=== PATIENT | male | born 1965 | race African-American/Black ===

== ENCOUNTER 2017-07-15 12:22 | Inpatient (IN) ==
[2017-07-15] MEDS ORDERED: SODIUM CHLORIDE 0.9% 1,000 ML IV STA (13:17)
[2017-07-15] MEDS ORDERED: METOCLOPRAMIDE 10 MG/2 ML VIAL IV STA (13:17)
[2017-07-15] MEDS ORDERED: ONDANSETRON 4 MG/2 ML VIAL IV STA (13:17)
[2017-07-15] MEDS ORDERED: PANTOPRAZOLE 40 MG VIAL IV STA (13:17)
[2017-07-15] MEDS ORDERED: ASPIRIN 325 MG TABLET PO STA (13:17)
[2017-07-15] MEDS ORDERED: DICYCLOMINE 20 MG/2 ML AMP IM ONE ×2 (13:22→13:51)
[2017-07-15] MEDS ORDERED: METOCLOPRAMIDE 10 MG/2 ML VIAL ONE (13:51)
[2017-07-15] MEDS ORDERED: ONDANSETRON 4 MG/2 ML VIAL ONE (13:51)
[2017-07-15] MEDS ORDERED: PANTOPRAZOLE 40 MG VIAL IV ONE (13:51)
[2017-07-15] MEDS ORDERED: ASPIRIN 325 MG TABLET ONE (13:51)
[2017-07-15 14:07] LABS: Basophils # 0.1 10*3/uL (0.0-0.2); Basophils % 0.4 % (0.0-0.8); Eosinophils % 0.1 % (0.00-10.9); Hematocrit 38.1 VOL% (42.0-52.0); Hemoglobin 13.8 GM/DL (14.0-18.0); Immature Granulocytes % 0.5 %; Immature Granulocytes Absolute 0.06 #; Lymphocytes # 1.9 10*3/uL (1.4-4.0); Lymphocytes % 15.8 % (21.2-54.2); Mean Corpuscular HGB Conc 36.2 GM/DL (32-36); Mean Corpuscular Hemoglobin 29 PG (27-34); Mean Corpuscular Volume 79.2 FL (87-102); Mean Platelet Volume 9.9 FL (9.6-12.0); Monocytes # 1.1 10*3/uL (0.11-0.8); Neutrophils # 8.7 10*3/uL (1.4-7.4); Neutrophils % 74.2 % (38.7-73.9); Platelet Count 410 T/CUMM (130-400); Red Blood Count 4.81 MC/CUMM (3.8-5.5); Red Cell Distribution Width 13.7 % (9.3-17.3); White Blood Count 11.8 T/CUMM (4-12)
[2017-07-15 14:14] LABS: INR 1.2; PT Patient Result 12.4 SECS; Partial Thromboplastin Time 26.6 SECS (0-40)
[2017-07-15 14:21] LABS: Alanine Aminotransferase 87 U/L (16-61); Albumin 3.5 G/DL (3.4-5.0); Alkaline Phosphatase 64 U/L (45-117); Amylase 77 U/L (25-115); Aspartate Amino Transferase 55 U/L (0-37); Blood Urea Nitrogen 14 MG/DL (7-18); Calcium 8.9 MG/DL (8.5-10.1); Glucose 123 MG/DL (74-106); Potassium 4.7 MMOL/L (3.5-5.1); Sodium 136 MMOL/L (136-145); Total Protein 7.3 G/DL (6.4-8.3); Troponin I Only < 0.015 NG/ML (0.00-0.045)
[2017-07-15 15:30] LABS: Apearance,Urine CLEAR (Clear); Bilirubin,Urine Negative (Negative); Blood, Urine Negative (Negative); Glucose,Urine (UA) 50 mg/dL (Negative); Ketones,Urine Negative (Negative); Mucus,Urine Occasional /LPF (Occasional); Nitrite,Urine Negative (Negative); Protein,Urine Negative; RBC,Urine <1 /HPF (0-4); Urine Color Yellow (Yellow); Urine Specific Gravity 1.012 (1.001-1.035); WBC,Urine <1 /HPF (0-6)
[2017-07-15] MEDS ORDERED: HYDROmorphone 2 MG/1 ML VIAL IV STA (15:35)
[2017-07-15] MEDS ORDERED: HYDROmorphone 2 MG/1 ML VIAL ONE (15:36)
[2017-07-15] MEDS ORDERED: ACETAMINOPHEN 325 MG TABLET PO PRN (18:00)
[2017-07-15] MEDS ORDERED: ONDANSETRON 4 MG/2 ML VIAL IV PRN (18:00)
[2017-07-15] MEDS: SODIUM CHLORIDE 0.9% 1,000 ML IV SCH (20:36)
[2017-07-15] MEDS: HYDROmorphone 2 MG/1 ML VIAL IV PRN (20:36)
[2017-07-16] MEDS: HYDROmorphone 2 MG/1 ML VIAL IV PRN ×4 (03:46→21:51)
[2017-07-16] MEDS: SODIUM CHLORIDE 0.9% 1,000 ML IV SCH (03:50)
[2017-07-16] MEDS: NICOTINE 21 MG/24 HR PATCH TRANSDERM SCH ×8 (03:57→04:23)
[2017-07-16 06:47] LABS: Basophils % 0.2 % (0.0-0.8); Eosinophils # 0.1 10*3/uL (0.0-0.87); Eosinophils % 0.3 % (0.00-10.9); Hematocrit 32.8 VOL% (42.0-52.0); Hemoglobin 11.4 GM/DL (14.0-18.0); Immature Granulocytes % 1.3 %; Immature Granulocytes Absolute 0.22 #; Lymphocytes % 12.1 % (21.2-54.2); Mean Corpuscular HGB Conc 34.8 GM/DL (32-36); Mean Corpuscular Hemoglobin 29 PG (27-34); Mean Corpuscular Volume 82.2 FL (87-102); Mean Platelet Volume 10.5 FL (9.6-12.0); Monocytes # 1.6 10*3/uL (0.11-0.8); Monocytes % 9.5 % (1.7-12.7); Neutrophils # 12.7 10*3/uL (1.4-7.4); Neutrophils % 76.6 % (38.7-73.9); Platelet Count 370 T/CUMM (130-400); Red Blood Count 3.99 MC/CUMM (3.8-5.5); White Blood Count 16.7 T/CUMM (4-12)
[2017-07-16 07:19] LABS: Albumin 2.7 G/DL (3.4-5.0); Bilirubin,Direct 0.84 MG/DL (0.0-0.20); Bilirubin,Total 2.8 MG/DL (0.2-1.0); Total Protein 5.9 G/DL (6.4-8.3)
[2017-07-16 07:24] LABS: Osmolality,Calculated 269.8 MOS/KG (273-304); Potassium 3.7 MMOL/L (3.5-5.1)
[2017-07-16 07:28] LABS: Risk Ratio 2.29; VLDL CHOLESTEROL 15.8 MG/DL
[2017-07-16] MEDS: PANTOPRAZOLE 40 MG TABLET PO SCH (09:28)
[2017-07-16] MEDS: MULTIVITAMIN (CENTRUM) TABLET PO SCH (09:28)
[2017-07-16] MEDS: FOLIC ACID 1 MG TABLET PO SCH (09:28)
[2017-07-16] MEDS: THIAMINE 100 MG TABLET PO SCH (09:28)
[2017-07-16] MEDS: LEVOFLOXACIN INJ 750 MG in PREMIX 1 EACH IV SCH (09:57)
[2017-07-16] MEDS: POTASSIUM CHLORIDE INJ 10 MEQ in LACTATED RINGERS 1,000 ML IV SCH ×3 (11:21→19:44)
[2017-07-17] MEDS: POTASSIUM CHLORIDE INJ 10 MEQ in LACTATED RINGERS 1,000 ML IV SCH ×4 (00:46→12:14)
[2017-07-17] MEDS: HYDROmorphone 2 MG/1 ML VIAL IV PRN ×4 (03:25→21:34)
[2017-07-17 07:06] LABS: Basophils # 0.1 10*3/uL (0.0-0.2); Basophils % 0.2 % (0.0-0.8); Eosinophils # 0.1 10*3/uL (0.0-0.87); Eosinophils % 0.3 % (0.00-10.9); Hematocrit 30.4 VOL% (42.0-52.0); Hemoglobin 10.6 GM/DL (14.0-18.0); Immature Granulocytes % 0.7 %; Immature Granulocytes Absolute 0.16 #; Lymphocytes # 2.3 10*3/uL (1.4-4.0); Lymphocytes % 10.5 % (21.2-54.2); Mean Corpuscular HGB Conc 34.9 GM/DL (32-36); Mean Corpuscular Hemoglobin 29 PG (27-34); Mean Corpuscular Volume 82.8 FL (87-102); Mean Platelet Volume 10.8 FL (9.6-12.0); Monocytes # 1.8 10*3/uL (0.11-0.8); Monocytes % 8.1 % (1.7-12.7); Neutrophils # 17.5 10*3/uL (1.4-7.4); Neutrophils % 80.2 % (38.7-73.9); Platelet Count 334 T/CUMM (130-400); Red Blood Count 3.67 MC/CUMM (3.8-5.5); Red Cell Distribution Width 14.3 % (9.3-17.3); White Blood Count 21.9 T/CUMM (4-12)
[2017-07-17 07:33] LABS: Calcium 8.4 MG/DL (8.5-10.1); Magnesium 1.7 MG/DL (1.8-2.4); Osmolality,Calculated 268.7 MOS/KG (273-304); Potassium 3.9 MMOL/L (3.5-5.1)
[2017-07-17 07:36] LABS: Albumin 2.5 G/DL (3.4-5.0); Bilirubin,Direct 1.26 MG/DL (0.0-0.20); Bilirubin,Indirect 1.3 MG/DL (0.0-1.0); Bilirubin,Total 2.6 MG/DL (0.2-1.0); Total Protein 5.3 G/DL (6.4-8.3)
[2017-07-17 07:37] LABS: Albumin 2.5 G/DL (3.4-5.0); Bilirubin,Total 2.6 MG/DL (0.2-1.0); Calcium 8.4 MG/DL (8.5-10.1); Osmolality,Calculated 268.7 MOS/KG (273-304); Total Protein 5.3 G/DL (6.4-8.3)
[2017-07-17 07:59] LABS: Band Neutrophils 2 % (0-10); Eosinophils 1 % (0-10); Lymphocytes 9 % (20-55); Segmented Neutrophils 85 % (50-85); Target Cells Slight; Total Cells Counted 100
[2017-07-17 08:00] LABS: Hypochromasia 2+; Polychromasia Slight
[2017-07-17] MEDS ORDERED: DEXTROSE 50% 25 GM/50 ML VIAL IV ONE (08:05)
[2017-07-17] MEDS ORDERED: DEXTROSE 50% 25 GM/50 ML VIAL IV PRN (08:14)
[2017-07-17] MEDS: LEVOFLOXACIN INJ 750 MG in PREMIX 1 EACH IV SCH (08:35)
[2017-07-17] MEDS: FOLIC ACID 1 MG TABLET PO SCH (09:14)
[2017-07-17] MEDS: MULTIVITAMIN (CENTRUM) TABLET PO SCH (09:14)
[2017-07-17] MEDS: THIAMINE 100 MG TABLET PO SCH (09:15)
[2017-07-17] MEDS: PANTOPRAZOLE 40 MG TABLET PO SCH (09:15)
[2017-07-17] MEDS: NICOTINE 21 MG/24 HR PATCH TRANSDERM SCH (09:27)
[2017-07-17] MEDS: POTASSIUM CHLORIDE INJ 10 MEQ in DEXTROSE 5% LACTATED RINGERS 1,000 ML IV SCH ×2 (15:37→20:28)
[2017-07-17] MEDS: cefTRIAXone 1,000 MG in SYRINGE 1 EACH IV SCH (17:22)
[2017-07-18] MEDS: POTASSIUM CHLORIDE INJ 10 MEQ in DEXTROSE 5% LACTATED RINGERS 1,000 ML IV SCH ×3 (01:03→11:27)
[2017-07-18] MEDS: HYDROmorphone 2 MG/1 ML VIAL IV PRN (03:28)
[2017-07-18] MEDS: NICOTINE 21 MG/24 HR PATCH TRANSDERM SCH ×2 (06:12→08:44)
[2017-07-18 06:44] LABS: Basophils % 0.2 % (0.0-0.8); Eosinophils # 0.1 10*3/uL (0.0-0.87); Eosinophils % 0.9 % (0.00-10.9); Hematocrit 27.6 VOL% (42.0-52.0); Hemoglobin 9.8 GM/DL (14.0-18.0); Immature Granulocytes % 0.6 %; Lymphocytes # 2.1 10*3/uL (1.4-4.0); Lymphocytes % 13.1 % (21.2-54.2); Mean Corpuscular HGB Conc 35.5 GM/DL (32-36); Mean Corpuscular Hemoglobin 29 PG (27-34); Mean Corpuscular Volume 81.2 FL (87-102); Mean Platelet Volume 10.5 FL (9.6-12.0); Monocytes # 1.2 10*3/uL (0.11-0.8); Monocytes % 7.8 % (1.7-12.7); Neutrophils # 12.1 10*3/uL (1.4-7.4); Neutrophils % 77.4 % (38.7-73.9); Platelet Count 334 T/CUMM (130-400); Red Cell Distribution Width 14.2 % (9.3-17.3); White Blood Count 15.6 T/CUMM (4-12)
[2017-07-18 07:11] LABS: Albumin 2.4 G/DL (3.4-5.0); Bilirubin,Total 1.7 MG/DL (0.2-1.0); Osmolality,Calculated 275.4 MOS/KG (273-304); Potassium 3.9 MMOL/L (3.5-5.1); Total Protein 5.3 G/DL (6.4-8.3)
[2017-07-18] MEDS ORDERED: PROPOFOL 200 MG/20 ML VIAL IV ONE (09:25)
[2017-07-18] MEDS ORDERED: LIDOCAINE 2% 5 ML VIAL ONE (09:25)
[2017-07-18] MEDS: LEVOFLOXACIN INJ 750 MG in PREMIX 1 EACH IV SCH (10:33)
[2017-07-18] MEDS: THIAMINE 100 MG TABLET PO SCH (10:33)
[2017-07-18] MEDS: FOLIC ACID 1 MG TABLET PO SCH (10:34)
[2017-07-18] MEDS: PANTOPRAZOLE 40 MG TABLET PO SCH (10:34)
[2017-07-18] MEDS: MULTIVITAMIN (CENTRUM) TABLET PO SCH (10:34)
[2017-07-18] MEDS: cefTRIAXone 1,000 MG in SYRINGE 1 EACH IV SCH (17:32)
[2017-07-19] MEDS: LEVOFLOXACIN INJ 750 MG in PREMIX 1 EACH IV SCH (08:54)
[2017-07-19] MEDS: MULTIVITAMIN (CENTRUM) TABLET PO SCH (08:55)
[2017-07-19] MEDS: NICOTINE 21 MG/24 HR PATCH TRANSDERM SCH (08:55)
[2017-07-19] MEDS: THIAMINE 100 MG TABLET PO SCH (08:55)
[2017-07-19] MEDS: PANTOPRAZOLE 40 MG TABLET PO SCH (08:55)
[2017-07-19] MEDS: FOLIC ACID 1 MG TABLET PO SCH (08:55)
[2017-07-19 10:42] VITALS: BP 138/78
== END 2017-07-19 11:06 | disposition home or self-care (01) | DRG 438 ==
LOC: N.ED 12:22 → N.EDINP 17:19 → N.5E 18:53